=== PATIENT | female | born 1955 | race Caucasian/White ===

== ENCOUNTER 2016-09-15 10:30 | Emergency (ER) | payer BC ==
[~2016-09-15] VITALS: Ht 170.2 cm; Wt 76.5 kg
[~2016-09-15 10:30] MED LIST: CARV12.543 PO; DILT120C80 PO
[2016-09-15 12:37] LABS: HEMOGLOBIN 13.9 g/dL (11.7-16.4)
[2016-09-15] MEDS ORDERED: TELM80TA PO (12:44)
[2016-09-15] MEDS ORDERED: HYDR1TAB16 PO (12:46)
[2016-09-15 12:58] LABS: BLOOD UREA NITROGEN 16 mg/dL (7-18)
[2016-09-15 13:05] LABS: ASPARTATE AMINO TRANSFERASE 161 U/L (15-37)
[2016-09-15 13:50] VITALS: BP 134/78
[2016-09-15] MEDS ORDERED: SODIUM CHLORIDE FLUSH 10ML SYR IVF ONE (14:00)
[2016-09-15] MEDS ORDERED: MORPHINE SULFATE 4 MG/ML, 1ML IVPush PRN (14:00)
[2016-09-15] MEDS ORDERED: ONDANSETRON 2MG/ML, 2ML IVPush ONE (14:00)
[2016-09-15] MEDS ORDERED: MORPHINE SULFATE 4 MG/ML, 1ML ONE (14:01)
[2016-09-15] MEDS ORDERED: ONDANSETRON 2MG/ML, 2ML ONE (14:01)
[2016-09-15] MEDS ORDERED: OMNIPAQUE 350 MG/ML, 100ML BOTTLE ONE (18:58)
[2016-09-16] MEDS ORDERED: ZINC50TA2 PO (13:01)
[2016-09-16] MEDS ORDERED: VITA1CAP PO (13:01)
[2016-09-16] MEDS ORDERED: ASCO10004 PO (13:01)
[2016-09-16] MEDS ORDERED: CHOL20003 PO (13:01)
[2016-09-16] MEDS ORDERED: ZOLP-413 PO (13:47)
== END 2016-09-15 15:12 | disposition home or self-care (01) ==
LOC: ED 14:50
DX: K85.20 Alcohol induced acute pancreatitis without necrosis or infection (principal); I10 Essential (primary) hypertension; K59.00 Constipation, unspecified
CPT/HCPCS: 36415; 74177; 80053; 80307; 81001; 83690; 85025; 87086; 96374; 96375; 99285; J2405; Q9967

== ENCOUNTER 2016-09-16 11:07 | Inpatient (IN) | payer BC ==
[~2016-09-16] VITALS: Ht 170.2 cm; Wt 76.8 kg
[~2016-09-16 11:07] MED LIST changes: +HYDR1TAB16 PO; +TELM80TA PO
[2016-09-16] MEDS ORDERED: SODIUM CHLORIDE FLUSH 10ML SYR IVF ONE (12:00)
[2016-09-16] MEDS ORDERED: SODIUM CHLORIDE 0.9% 1,000ML IVBOLUS ONE (12:00)
[2016-09-16] MEDS ORDERED: ONDANSETRON 2MG/ML, 2ML IVPush ONE (12:00)
[2016-09-16 12:02] LABS: HEMOGLOBIN 13.5 g/dL (11.7-16.4)
[2016-09-16 12:14] LABS: ASPARTATE AMINO TRANSFERASE 82 U/L (15-37); BLOOD UREA NITROGEN 19 mg/dL (7-18)
[2016-09-16] MEDS ORDERED: MORPHINE SULFATE 4 MG/ML, 1ML ONE ×2 (12:22→13:42)
[2016-09-16] MEDS ORDERED: ONDANSETRON 2MG/ML, 2ML ONE (12:22)
[2016-09-16] MEDS ORDERED: SODIUM CHLORIDE 0.9% 1,000 ML IV ONE (12:34)
[2016-09-16] MEDS: MORPHINE SULFATE 4 MG/ML, 1ML IVPush PRN ×4 (12:38→21:58)
[2016-09-16] MEDS ORDERED: ZINC50TA2 PO (13:01)
[2016-09-16] MEDS ORDERED: VITA1CAP PO (13:01)
[2016-09-16] MEDS ORDERED: ASCO10004 PO (13:01)
[2016-09-16] MEDS ORDERED: CHOL20003 PO (13:01)
[2016-09-16] MEDS ORDERED: ZOLP-413 PO (13:47)
[2016-09-16 14:38] VITALS: BP 162/106
[2016-09-16] MEDS: SODIUM CHLORIDE 0.9% 1,000 ML IV SCH ×2 (14:54→20:24)
[2016-09-16] MEDS: POTASSIUM CHLORIDE 20 MEQ, MAGNESIUM SULFATE 2 GM, THIAMINE 100 MG, MVI ADULT 10 ML, FO... IV SCH (15:54)
[2016-09-16] MEDS: LORazepam 2 MG/ML, 1ML IVPush PRN ×2 (15:55→20:24)
[2016-09-16] MEDS: PANTOPRAZOLE 40 MG IV IVP SCH (15:55)
[2016-09-16 19:45] VITALS: BP 160/102
[2016-09-16] MEDS: ENOXAPARIN 40 MG/0.4 ML SQ SCH (20:30)
[2016-09-17] MEDS: MORPHINE SULFATE 4 MG/ML, 1ML IVPush PRN ×4 (01:19→16:01)
[2016-09-17] MEDS: SODIUM CHLORIDE 0.9% 1,000 ML IV SCH ×4 (01:19→18:00)
[2016-09-17] MEDS: ONDANSETRON 2MG/ML, 2ML IVP PRN ×3 (01:28→23:27)
[2016-09-17 03:13] VITALS: BP 164/115
[2016-09-17] MEDS: LORazepam 2 MG/ML, 1ML IVPush PRN ×2 (03:32→08:54)
[2016-09-17 07:13] LABS: BLOOD UREA NITROGEN 8 mg/dL (7-18)
[2016-09-17 07:22] LABS: ASPARTATE AMINO TRANSFERASE 56 U/L (15-37)
[2016-09-17 07:23] LABS: HEMOGLOBIN 11.9 g/dL (11.7-16.4)
[2016-09-17 07:53] VITALS: BP 184/123
[2016-09-17 08:20] LABS: DIFF TOTAL CELLS COUNTED 100 CELL DIFF
[2016-09-17 08:22] LABS: VERIFY COUNTS? YES
[2016-09-17] MEDS: LOSARTAN 50MG TABLET PO SCH ×2 (08:54→09:00)
[2016-09-17] MEDS: CARVEDILOL 12.5 MG TABLET PO SCH (08:55)
[2016-09-17] MEDS: PANTOPRAZOLE 40 MG IV IVP SCH (08:55)
[2016-09-17] MEDS: DILTIAZEM 120 MG CAP.ER.24H PO SCH (08:55)
[2016-09-17] MEDS: BISACODYL 10 MG SUPP PR PRN (12:03)
[2016-09-17 12:11] VITALS: BP 157/107
[2016-09-17] MEDS: POTASSIUM CHLORIDE 20 MEQ, MAGNESIUM SULFATE 2 GM, THIAMINE 100 MG, MVI ADULT 10 ML, FO... IV SCH (16:50)
[2016-09-17 16:53] VITALS: BP 157/102
[2016-09-17] MEDS: SUCRALFATE 1 GM/10 ML UDC PO SCH ×2 (17:25→19:53)
[2016-09-17 18:10] LABS: DAU SCREEN DISCLAIMER
[2016-09-17] MEDS: HYDROmorphone 2 MG/ML, 1ML IVPush PRN ×2 (18:36→23:30)
[2016-09-17 18:50] VITALS: BP 163/105
[2016-09-17] MEDS: ENOXAPARIN 40 MG/0.4 ML SQ SCH (19:54)
[2016-09-17] MEDS: ZOLPIDEM 5MG TABLET PO PRN (20:24)
[2016-09-18 01:50] VITALS: BP 157/91
[2016-09-18] MEDS: HYDROmorphone 2 MG/ML, 1ML IVPush PRN ×7 (02:58→22:26)
[2016-09-18 05:45] LABS: HEMOGLOBIN 10.9 g/dL (11.7-16.4)
[2016-09-18] MEDS: SODIUM CHLORIDE 0.9% 1,000 ML IV SCH ×4 (06:13→22:26)
[2016-09-18 06:17] LABS: ASPARTATE AMINO TRANSFERASE 37 U/L (15-37); BLOOD UREA NITROGEN 3 mg/dL (7-18)
[2016-09-18] MEDS: SUCRALFATE 1 GM/10 ML UDC PO SCH ×4 (07:00→22:26)
[2016-09-18 07:54] VITALS: BP 164/101
[2016-09-18] MEDS: PANTOPRAZOLE 40 MG IV IVP SCH (08:57)
[2016-09-18] MEDS: ONDANSETRON 2MG/ML, 2ML IVP PRN (09:17)
[2016-09-18] MEDS: CARVEDILOL 12.5 MG TABLET PO SCH (09:20)
[2016-09-18] MEDS: LOSARTAN 50MG TABLET PO SCH (09:20)
[2016-09-18] MEDS: DILTIAZEM 120 MG CAP.ER.24H PO SCH (09:21)
[2016-09-18] MEDS: LORazepam 2 MG/ML, 1ML IVPush PRN ×3 (11:08→20:26)
[2016-09-18] MEDS: BISACODYL 10 MG SUPP PR PRN (12:32)
[2016-09-18 13:01] VITALS: BP 155/100
[2016-09-18] MEDS ORDERED: OMNIPAQUE 350 MG/ML, 100ML BOTTLE ONE (17:28)
[2016-09-18 18:58] VITALS: BP 163/102
[2016-09-18] MEDS: ENOXAPARIN 40 MG/0.4 ML SQ SCH (22:26)
[2016-09-18] MEDS: ZOLPIDEM 5MG TABLET PO PRN (22:26)
[2016-09-19] MEDS: LORazepam 2 MG/ML, 1ML IVPush PRN ×3 (00:53→14:05)
[2016-09-19 02:11] VITALS: BP 166/103
[2016-09-19] MEDS: HYDROmorphone 2 MG/ML, 1ML IVPush PRN ×4 (02:20→12:39)
[2016-09-19] MEDS: SODIUM CHLORIDE 0.9% 1,000 ML IV SCH ×3 (02:46→14:11)
[2016-09-19 07:12] VITALS: BP 155/94
[2016-09-19] MEDS: PANTOPRAZOLE 40 MG IV IVP SCH (07:53)
[2016-09-19] MEDS: SUCRALFATE 1 GM/10 ML UDC PO SCH ×4 (07:53→21:35)
[2016-09-19] MEDS: CARVEDILOL 12.5 MG TABLET PO SCH (07:54)
[2016-09-19] MEDS: LOSARTAN 50MG TABLET PO SCH (07:54)
[2016-09-19] MEDS: DILTIAZEM 120 MG CAP.ER.24H PO SCH (07:55)
[2016-09-19] MEDS: BISACODYL 10 MG SUPP PR PRN (10:53)
[2016-09-19 15:46] VITALS: BP 136/85
[2016-09-19] MEDS ORDERED: LORazepam 0.5MG TABLET PO PRN (16:00)
[2016-09-19] MEDS ORDERED: LORazepam 2 MG/ML, 1ML IV PRN ×5 (16:00)
[2016-09-19] MEDS ORDERED: LORazepam 1MG TABLET PO PRN ×4 (16:00)
[2016-09-19] MEDS: HYDROmorphone 2MG TABLET PO PRN ×2 (16:41→23:46)
[2016-09-19 19:04] VITALS: BP 126/83
[2016-09-19] MEDS: HYDROcodone/APAP 5/325 TABLET PO PRN (19:39)
[2016-09-19] MEDS: ENOXAPARIN 40 MG/0.4 ML SQ SCH (19:46)
[2016-09-20] MEDS: ZOLPIDEM 5MG TABLET PO PRN (00:26)
[2016-09-20 01:32] VITALS: BP 149/88
[2016-09-20] MEDS: HYDROcodone/APAP 5/325 TABLET PO PRN ×4 (02:55→22:11)
[2016-09-20 05:37] LABS: ASPARTATE AMINO TRANSFERASE 28 U/L (15-37); BLOOD UREA NITROGEN 5 mg/dL (7-18)
[2016-09-20 05:38] LABS: HEMOGLOBIN 10.4 g/dL (11.7-16.4)
[2016-09-20] MEDS: HYDROmorphone 2MG TABLET PO PRN ×3 (05:59→18:03)
[2016-09-20 06:17] LABS: ANISOCYTOSIS 1+
[2016-09-20 06:18] LABS: STOMATOCYTES 1+
[2016-09-20 06:19] LABS: MONOS WITH VACUOLES 1+
[2016-09-20 08:11] VITALS: BP 153/91
[2016-09-20] MEDS: DILTIAZEM 120 MG CAP.ER.24H PO SCH (09:14)
[2016-09-20] MEDS: PANTOPRAZOLE 40 MG IV IVP SCH (09:14)
[2016-09-20] MEDS: SUCRALFATE 1 GM/10 ML UDC PO SCH ×4 (09:14→20:26)
[2016-09-20] MEDS: FOLIC ACID 1 MG TABLET PO SCH (09:15)
[2016-09-20] MEDS: THIAMINE 100MG TABLET PO SCH (09:15)
[2016-09-20] MEDS: LOSARTAN 50MG TABLET PO SCH (09:15)
[2016-09-20] MEDS: CARVEDILOL 12.5 MG TABLET PO SCH (09:15)
[2016-09-20] MEDS: SODIUM CHLORIDE 0.9% 1,000 ML IV SCH ×3 (09:16→22:56)
[2016-09-20] MEDS: BISACODYL 10 MG SUPP PR PRN (09:18)
[2016-09-20 13:18] VITALS: BP 108/55
[2016-09-20] MEDS: POTASSIUM CHLORIDE 20 MEQ PACKET PO SCH (13:34)
[2016-09-20] MEDS ORDERED: LORazepam 2 MG/ML, 1ML IVPush ONE (16:00)
[2016-09-20 18:59] VITALS: BP 131/89
[2016-09-20] MEDS: ENOXAPARIN 40 MG/0.4 ML SQ SCH (20:27)
[2016-09-21] MEDS: HYDROmorphone 2MG TABLET PO PRN ×4 (00:27→19:17)
[2016-09-21 03:40] VITALS: BP 145/96
[2016-09-21] MEDS: HYDROcodone/APAP 5/325 TABLET PO PRN (04:15)
[2016-09-21 05:29] LABS: BLOOD UREA NITROGEN 4 mg/dL (7-18)
[2016-09-21 05:31] LABS: ASPARTATE AMINO TRANSFERASE 26 U/L (15-37)
[2016-09-21 05:36] LABS: HEMOGLOBIN 9.5 g/dL (11.7-16.4)
[2016-09-21] MEDS: SODIUM CHLORIDE 0.9% 1,000 ML IV SCH ×2 (05:39→13:30)
[2016-09-21 07:12] VITALS: BP 157/91
[2016-09-21] MEDS: DILTIAZEM 120 MG CAP.ER.24H PO SCH (08:29)
[2016-09-21] MEDS: PANTOPRAZOLE 40 MG IV IVP SCH (08:30)
[2016-09-21] MEDS: THIAMINE 100MG TABLET PO SCH (08:31)
[2016-09-21] MEDS: FOLIC ACID 1 MG TABLET PO SCH (08:31)
[2016-09-21] MEDS: POTASSIUM CHLORIDE 20 MEQ PACKET PO SCH (08:31)
[2016-09-21] MEDS: LOSARTAN 50MG TABLET PO SCH (08:31)
[2016-09-21] MEDS: SUCRALFATE 1 GM/10 ML UDC PO SCH ×4 (08:32→19:56)
[2016-09-21] MEDS: CARVEDILOL 12.5 MG TABLET PO SCH (08:32)
[2016-09-21] MEDS: OXYcodone IR 5MG TABLET PO PRN ×3 (10:42→23:09)
[2016-09-21 13:00] VITALS: BP 126/83
[2016-09-21] MEDS: BISACODYL 10 MG SUPP PR PRN (17:29)
[2016-09-21 19:07] VITALS: BP 120/84
[2016-09-21] MEDS: ENOXAPARIN 40 MG/0.4 ML SQ SCH (19:56)
[2016-09-22 03:09] VITALS: BP 145/92
[2016-09-22] MEDS: HYDROmorphone 2MG TABLET PO PRN ×4 (03:19→20:30)
[2016-09-22] MEDS: OXYcodone IR 5MG TABLET PO PRN ×3 (05:15→19:12)
[2016-09-22 06:02] LABS: BLOOD UREA NITROGEN 5 mg/dL (7-18)
[2016-09-22 06:07] LABS: ASPARTATE AMINO TRANSFERASE 24 U/L (15-37)
[2016-09-22 06:09] LABS: HEMOGLOBIN 9.5 g/dL (11.7-16.4)
[2016-09-22] MEDS: SUCRALFATE 1 GM/10 ML UDC PO SCH ×4 (07:00→20:30)
[2016-09-22] MEDS: POTASSIUM CHLORIDE 20 MEQ PACKET PO SCH (08:00)
[2016-09-22 08:40] VITALS: BP 154/96
[2016-09-22] MEDS: PANTOPRAZOLE 40 MG IV IVP SCH (09:34)
[2016-09-22] MEDS: CARVEDILOL 12.5 MG TABLET PO SCH (09:34)
[2016-09-22] MEDS ORDERED: MIDAZOLAM 1 MG/ML, 5ML ONE (11:40)
[2016-09-22] MEDS ORDERED: FENTANYL PF 100 MCG/2ML ONE (11:40)
[2016-09-22] MEDS: LOSARTAN 50MG TABLET PO SCH (12:49)
[2016-09-22] MEDS: DILTIAZEM 120 MG CAP.ER.24H PO SCH (12:49)
[2016-09-22] MEDS: FOLIC ACID 1 MG TABLET PO SCH (12:49)
[2016-09-22] MEDS: THIAMINE 100MG TABLET PO SCH (12:50)
[2016-09-22] MEDS: BISACODYL 10 MG SUPP PR PRN (15:13)
[2016-09-22 15:37] VITALS: BP 91/61
[2016-09-22 20:21] VITALS: BP 120/72
[2016-09-22] MEDS: ENOXAPARIN 40 MG/0.4 ML SQ SCH (20:30)
[2016-09-23] MEDS: HYDROmorphone 2MG TABLET PO PRN ×4 (00:45→15:28)
[2016-09-23] MEDS: OXYcodone IR 5MG TABLET PO PRN ×3 (01:29→13:59)
[2016-09-23 01:47] VITALS: BP 126/82
[2016-09-23 07:24] VITALS: BP 133/86
[2016-09-23] MEDS: SUCRALFATE 1 GM/10 ML UDC PO SCH ×2 (07:31→11:00)
[2016-09-23] MEDS: LOSARTAN 50MG TABLET PO SCH (07:32)
[2016-09-23] MEDS: PANTOPRAZOLE 40 MG IV IVP SCH (07:32)
[2016-09-23] MEDS: CARVEDILOL 12.5 MG TABLET PO SCH (07:32)
[2016-09-23] MEDS: THIAMINE 100MG TABLET PO SCH (07:33)
[2016-09-23] MEDS: DILTIAZEM 120 MG CAP.ER.24H PO SCH (07:33)
[2016-09-23] MEDS: FOLIC ACID 1 MG TABLET PO SCH (07:33)
[2016-09-23] MEDS: POTASSIUM CHLORIDE 20 MEQ PACKET PO SCH (08:00)
[2016-09-23 11:36] LABS: HEMOGLOBIN 9.6 g/dL (11.7-16.4)
[2016-09-23 11:49] LABS: BLOOD UREA NITROGEN 5 mg/dL (7-18)
[2016-09-23 11:53] LABS: ASPARTATE AMINO TRANSFERASE 21 U/L (15-37)
[2016-09-23] MEDS: BISACODYL 10 MG SUPP PR PRN (12:11)
[2016-09-23] MEDS ORDERED: POTASSIUM CHLORIDE 20 MEQ TAB.ER.PRT PO ONE (12:30)
[2016-09-23] MEDS ORDERED: HYDR-3240 PO (12:33)
[2016-09-23] MEDS ORDERED: PANT40TA3 PO (12:33)
[2016-09-23] MEDS ORDERED: FOLI-17 PO (12:33)
[2016-09-23] MEDS ORDERED: THIA100T6 PO (12:33)
[2016-09-23] MEDS ORDERED: SUCR1ORA2 PO (12:33)
[2016-09-23 13:34] VITALS: BP 103/69
== END 2016-09-23 16:04 | disposition home or self-care (01) | DRG 438 ==
LOC: ED 12:33 → EDIP 12:34 → ED 13:23 → 3NE 14:03 → DCLOUNGE 09-23 15:43
PROVIDERS: ADMIT Internal Medicine; ATTEND Internal Medicine
PROC: 0T9B70Z Drainage of Bladder with Drainage Device, Via Natural or Artificial Opening (ICD-10-PCS; 2016-09-21)
PROC: 0DB48ZX Excision of Esophagogastric Junction, Via Natural or Artificial Opening Endoscopic, Diagnostic (ICD-10-PCS; principal; 2016-09-22 10:30)
DX: K85.20 Alcohol induced acute pancreatitis without necrosis or infection (principal); E43 Unspecified severe protein-calorie malnutrition; N17.0 Acute kidney failure with tubular necrosis; E87.1 Hypo-osmolality and hyponatremia; K22.10 Ulcer of esophagus without bleeding; G89.29 Other chronic pain; I10 Essential (primary) hypertension; G47.00 Insomnia, unspecified; K76.0 Fatty (change of) liver, not elsewhere classified; N28.9 Disorder of kidney and ureter, unspecified; D75.89 Other specified diseases of blood and blood-forming organs; K86.1 Other chronic pancreatitis; E87.6 Hypokalemia; F10.10 Alcohol abuse, uncomplicated; Z68.26 Body mass index [BMI] 26.0-26.9, adult; Z90.49 Acquired absence of other specified parts of digestive tract; Z82.49 Family history of ischemic heart disease and other diseases of the circulatory system; Z86.010 Personal history of colon polyps; Z79.1 Long term (current) use of non-steroidal anti-inflammatories (NSAID)
CPT/HCPCS: 36415; 74000; 74174; 74181; 76700; 80053; 80061; 80307; 81003; 82607; 82746; 83690; 83735; 84439; 84443; 85025; 86677; 88305; 96361; 96374; 96375; 96376; J1170; J1650; J2250; J2405; J3010; J3411; J3475; J3480; J7042; Q9967; C9113; J2060; J7030

== ENCOUNTER 2016-10-31 15:43 | Inpatient (IN) | payer BC ==
[~2016-10-31] VITALS: Ht 170.2 cm; Wt 77.3 kg
[~2016-10-31 15:43] MED LIST changes: +ASCO10004 PO; +CHOL20003 PO; +FOLI-17 PO; +HYDR-3240 PO; +PANT40TA3 PO; +SUCR1ORA2 PO; +THIA100T6 PO; +VITA1CAP PO; +ZINC50TA2 PO; +ZOLP-413 PO
[2016-10-31] MEDS ORDERED: HYDROmorphone 1 MG/ML, 1ML ONE ×3 (17:26→19:29)
[2016-10-31] MEDS ORDERED: SODIUM CHLORIDE FLUSH 10ML SYR IVF ONE ×2 (17:30→19:30)
[2016-10-31] MEDS ORDERED: OXYcodone/APAP 5/325MG TABLET PO ONE (17:30)
[2016-10-31] MEDS: HYDROmorphone 1 MG/ML, 1ML IVPush PRN ×5 (17:45→23:59)
[2016-10-31] MEDS ORDERED: SODIUM CHLORIDE 0.9% 1,000 ML IV ONE (19:21)
[2016-10-31] MEDS ORDERED: LORazepam 2 MG/ML, 1ML ONE (19:30)
[2016-10-31] MEDS ORDERED: LORazepam 2 MG/ML, 1ML IVPush ONE (19:38)
[2016-10-31 19:51] LABS: BLOOD UREA NITROGEN 7 mg/dL (7-18)
[2016-10-31] MEDS ORDERED: TRAZODONE 50MG TABLET PO PRN (21:00)
[2016-10-31] MEDS ORDERED: BISACODYL 10 MG SUPP PR PRN (21:00)
[2016-10-31] MEDS ORDERED: HALOPERIDOL 5 MG/ML IVPush PRN (21:00)
[2016-10-31] MEDS ORDERED: POLYETHYLENE GLYCOL 17 GM PACKET PO PRN (21:00)
[2016-10-31] MEDS ORDERED: ENOXAPARIN 40 MG/0.4 ML SQ SCH (21:00)
[2016-10-31] MEDS ORDERED: DOCUSATE 100 MG CAPSULE PO PRN (21:00)
[2016-10-31] MEDS ORDERED: ZOLPIDEM 5MG TABLET PO SCH (21:00)
[2016-10-31] MEDS ORDERED: LABETALOL 5MG/ML, 20ML IV PRN ×2 (21:00→22:00)
[2016-10-31] MEDS ORDERED: ONDANSETRON 2MG/ML, 2ML IVP PRN (21:00)
[2016-10-31] MEDS ORDERED: PROPOFOL 10 MG/ML, 20ML ONE (21:16)
[2016-10-31] MEDS ORDERED: CEFAZOLIN 1,000 MG ONE (21:16)
[2016-10-31] MEDS ORDERED: FENTANYL PF 250 MCG/5ML ONE (21:16)
[2016-10-31] MEDS ORDERED: ONDANSETRON 2MG/ML, 2ML ONE (21:16)
[2016-10-31] MEDS ORDERED: DEXAMETHASONE 4 MG/ML, 5ML ONE (21:16)
[2016-10-31] MEDS ORDERED: EPHEDRINE 50 MG/ML, 1ML ONE (21:16)
[2016-10-31] MEDS ORDERED: MIDAZOLAM 1 MG/ML, 2ML ONE ×2 (21:16→21:59)
[2016-10-31] MEDS ORDERED: SUCCINYLCHOLINE 20 MG/ML, 10ML ONE (21:16)
[2016-10-31] MEDS ORDERED: PHENYLEPHRINE 10 MG/ML ONE (21:16)
[2016-10-31] MEDS ORDERED: BUPIVACAINE/PF 0.5% ONE (21:45)
[2016-10-31] MEDS ORDERED: BUPIVACAINE/PF 0.5% INJ ONE (21:46)
[2016-10-31] MEDS ORDERED: ACETAMINOPHEN 650 MG/20.3 ML UDC ONE (21:59)
[2016-10-31] MEDS ORDERED: FENTANYL PF 100 MCG/2ML ONE (21:59)
[2016-10-31] MEDS ORDERED: METOCLOPRAMIDE 5 MG/ML, 2ML IV PRN (22:00)
[2016-10-31] MEDS ORDERED: MEPERIDINE/PF 25MG/0.5ML IVPush PRN (22:00)
[2016-10-31] MEDS ORDERED: ONDANSETRON 2MG/ML, 2ML IVPush PRN (22:00)
[2016-10-31] MEDS ORDERED: hydrALAzine 20 MG/ML, 1ML IV PRN (22:00)
[2016-10-31] MEDS ORDERED: PROMETHAZINE 25 MG/ML, 1ML IV PRN (22:00)
[2016-10-31] MEDS ORDERED: FENTANYL PF 100 MCG/2ML IV PRN (22:00)
[2016-10-31] MEDS ORDERED: ACETAMINOPHEN 325 MG TABLET PO PRN (22:00)
[2016-10-31] MEDS ORDERED: HYDROmorphone 1 MG/ML, 1ML IV PRN (22:00)
[2016-10-31] MEDS ORDERED: ACETAMINOPHEN 325 MG TABLET ONE (22:00)
[2016-10-31] MEDS ORDERED: MIDAZOLAM 1 MG/ML, 2ML IV PRN (22:00)
[2016-10-31] MEDS ORDERED: OXYcodone 5 MG/5 ML ORAL.SOL UDC PO PRN (22:00)
[2016-10-31] MEDS ORDERED: OXYcodone 5 MG/5 ML ORAL.SOL UDC ONE (22:00)
[2016-11-01] VITALS: BP 140/98
[2016-11-01] MEDS ORDERED: LORazepam 2 MG/ML, 1ML IV PRN (00:30)
[2016-11-01] MEDS ORDERED: ONDANSETRON 2MG/ML, 2ML IV PRN (00:30)
[2016-11-01] MEDS ORDERED: SENNA/DOCUSATE TABLET PO PRN (00:30)
[2016-11-01] MEDS ORDERED: DIPHENHYDRAMINE 25 MG CAPSULE PO PRN (00:30)
[2016-11-01] MEDS ORDERED: LORazepam 1MG TABLET PO PRN (00:30)
[2016-11-01] MEDS ORDERED: HYDROmorphone 1 MG/ML, 1ML IV PRN (00:30)
[2016-11-01] MEDS: OXYcodone/APAP 5/325MG TABLET PO PRN ×2 (00:52→05:27)
[2016-11-01] MEDS: SODIUM CHLORIDE 0.9% 1,000 ML IV SCH ×2 (00:56→08:00)
[2016-11-01] MEDS: SUCRALFATE 1 GM/10 ML UDC PO SCH ×3 (00:56→11:16)
[2016-11-01] MEDS: PANTOPROZOLE 40MG TABLET PO SCH ×2 (00:59→08:36)
[2016-11-01 01:00] VITALS: BP 150/109
[2016-11-01] MEDS: MORPHINE SULFATE 4 MG/ML, 1ML IVPush PRN ×4 (02:52→12:36)
[2016-11-01 04:00] VITALS: BP 138/91
[2016-11-01] MEDS ORDERED: ASPIRIN 325 MG TABLET EC PO SCH (06:00)
[2016-11-01 06:26] LABS: ASPARTATE AMINO TRANSFERASE 19 U/L (15-37); BLOOD UREA NITROGEN 8 mg/dL (7-18)
[2016-11-01 07:38] LABS: TOTAL IRON BINDING CAPACITY 391 mcg/dL (250-450)
[2016-11-01 08:34] VITALS: BP 141/93
[2016-11-01] MEDS ORDERED: CARVEDILOL 12.5 MG TABLET PO SCH (09:00)
[2016-11-01] MEDS ORDERED: DILTIAZEM 120 MG CAP.ER.24H PO SCH (09:00)
[2016-11-01] MEDS ORDERED: DOCUSATE 100 MG CAPSULE PO SCH (09:00)
[2016-11-01] MEDS ORDERED: THIAMINE 100MG TABLET PO SCH (09:00)
[2016-11-01] MEDS ORDERED: VALSARTAN 160 MG TABLET PO SCH (09:00)
[2016-11-01] MEDS ORDERED: FOLIC ACID 1 MG TABLET PO SCH (09:00)
[2016-11-01 09:23] VITALS: BP 144/89
[2016-11-01] MEDS ORDERED: OXYC5SOL8 PO (10:38)
[2016-11-01] MEDS ORDERED: OXYcodone IR 5MG TABLET PO PRN (11:00)
[2016-11-01] MEDS ORDERED: OXYcodone 5 MG/5 ML ORAL.SOL UDC PO PRN (11:00)
[2016-11-01 13:30] VITALS: BP 144/85
== END 2016-11-01 14:02 | disposition home or self-care (01) | DRG 482 ==
LOC: ED 19:46 → EDIP 19:47 → ED 20:01 → 4NOR 23:20
PROVIDERS: ADMIT Internal Medicine; ATTEND Internal Medicine
PROC: 0QH734Z Insertion of Internal Fixation Device into Left Upper Femur, Percutaneous Approach (ICD-10-PCS; principal; 2016-10-31 20:00)
DX: S72.002A Fracture of unspecified part of neck of left femur, initial encounter for closed fracture (principal); I10 Essential (primary) hypertension; G89.29 Other chronic pain; F41.9 Anxiety disorder, unspecified; G47.00 Insomnia, unspecified; K76.0 Fatty (change of) liver, not elsewhere classified; W01.0XXA Fall on same level from slipping, tripping and stumbling without subsequent striking against object, initial encounter; Y93.89 Activity, other specified; Y92.89 Other specified places as the place of occurrence of the external cause; Y99.8 Other external cause status; Z90.49 Acquired absence of other specified parts of digestive tract; Z79.899 Other long term (current) drug therapy; Z82.49 Family history of ischemic heart disease and other diseases of the circulatory system; Z82.3 Family history of stroke; Z87.891 Personal history of nicotine dependence
CPT/HCPCS: 36415; 36556; 72190; 80048; 80053; 82040; 82306; 82607; 82746; 83540; 83550; 83735; 84439; 84443; 85025; 85610; 85730; 93005; 96374; 96375; C1713; J0690; J1100; J1170; J1650; J2250; J2405; J2704; J3010; J3490; J0330; J2060; J2370; J7030

== ENCOUNTER → 2017-05-30 | Outpatient (CLI) | payer BC ==
[~2017-05-30] MED LIST changes: +CHOL2000 PO; -CHOL20003 PO; +OXYC5SOL8 PO; -SUCR1ORA2 PO; +SUCR1ORA5 PO
== END | disposition home or self-care (01) ==
LOC: WOUND 09:32
PROVIDERS: ATTEND Family Medicine
DX: L97.212 Non-pressure chronic ulcer of right calf with fat layer exposed (principal); F41.9 Anxiety disorder, unspecified; I10 Essential (primary) hypertension; G89.29 Other chronic pain; F10.10 Alcohol abuse, uncomplicated; Z87.891 Personal history of nicotine dependence; Z90.49 Acquired absence of other specified parts of digestive tract
CPT/HCPCS: 97597; 97598; 99215

== ENCOUNTER → 2017-06-13 | Outpatient (CLI) | payer BC | END | disposition home or self-care (01) | LOC: WOUND 07:55 | PROVIDERS: ATTEND Family Medicine | DX: L97.212 Non-pressure chronic ulcer of right calf with fat layer exposed (principal); I10 Essential (primary) hypertension; F41.9 Anxiety disorder, unspecified; G89.29 Other chronic pain; F10.10 Alcohol abuse, uncomplicated; Z87.891 Personal history of nicotine dependence; Z90.49 Acquired absence of other specified parts of digestive tract | CPT/HCPCS: 97597 ==

== ENCOUNTER → 2017-06-20 | Outpatient (CLI) | payer BC | END | disposition home or self-care (01) | LOC: WOUND 08:00 | PROVIDERS: ATTEND Family Medicine | DX: L97.212 Non-pressure chronic ulcer of right calf with fat layer exposed (principal); I10 Essential (primary) hypertension; F41.9 Anxiety disorder, unspecified; G89.29 Other chronic pain; F10.10 Alcohol abuse, uncomplicated; Z90.49 Acquired absence of other specified parts of digestive tract; Z87.891 Personal history of nicotine dependence | CPT/HCPCS: 97597 ==

== ENCOUNTER → 2017-06-27 | Outpatient (CLI) | payer BC | END | disposition home or self-care (01) | LOC: WOUND 09:06 | PROVIDERS: ATTEND Family Medicine | DX: L97.212 Non-pressure chronic ulcer of right calf with fat layer exposed (principal); I10 Essential (primary) hypertension; F41.9 Anxiety disorder, unspecified; G89.29 Other chronic pain; F10.10 Alcohol abuse, uncomplicated; Z87.891 Personal history of nicotine dependence | CPT/HCPCS: 11042; 11045 ==

== ENCOUNTER → 2017-11-06 | Outpatient (CLI) | payer OTHER ==
[~2017-11-06] MED LIST changes: +OMNIPAQUE 350 MG/ML, 100ML BOTTLE ONE
== END | disposition home or self-care (01) ==
LOC: CFH 11:13
PROVIDERS: ATTEND Physician Assistant Medical
DX: S22.42XD Multiple fractures of ribs, left side, subsequent encounter for fracture with routine healing (principal); I71.2 Thoracic aortic aneurysm, without rupture; X58.XXXD Exposure to other specified factors, subsequent encounter
CPT/HCPCS: 71275; Q9967

== ENCOUNTER → 2017-12-04 | Outpatient (CLI) | payer OTHER ==
[~2017-12-04] MED LIST changes: -OMNIPAQUE 350 MG/ML, 100ML BOTTLE ONE; +REGADENOSON 0.4 MG/5 ML SYRINGE ONE
== END | disposition home or self-care (01) ==
LOC: CFH 11:33 → EDSTATUS 11:45
PROVIDERS: ATTEND Physician Assistant Medical
DX: Z12.31 Encounter for screening mammogram for malignant neoplasm of breast (principal); I71.2 Thoracic aortic aneurysm, without rupture
CPT/HCPCS: 77063; 77067; 78452; 93017; A9502; J2785

== ENCOUNTER → 2018-02-27 | Outpatient (CLI) | payer OTHER ==
[~2018-02-27] MED LIST changes: -REGADENOSON 0.4 MG/5 ML SYRINGE ONE; -THIA100T6 PO; +THIA100T67 PO
== END | disposition home or self-care (01) ==
LOC: RAD 10:45
PROVIDERS: ATTEND Neurological Surgery
DX: M51.36 Other intervertebral disc degeneration, lumbar region (principal); M47.28 Other spondylosis with radiculopathy, sacral and sacrococcygeal region
CPT/HCPCS: 72131

== ENCOUNTER → 2018-11-11 | Outpatient (CLI) | payer OTHER | END | disposition home or self-care (01) | LOC: CFH 12:41 | PROVIDERS: ATTEND Orthopaedic Surgery | DX: M47.817 Spondylosis without myelopathy or radiculopathy, lumbosacral region (principal); M51.26 Other intervertebral disc displacement, lumbar region; M85.80 Other specified disorders of bone density and structure, unspecified site; M70.61 Trochanteric bursitis, right hip; Z78.0 Asymptomatic menopausal state | CPT/HCPCS: 72148; 77080 ==

== ENCOUNTER → 2018-12-02 | Outpatient (CLI) | payer OTHER | END | disposition home or self-care (01) | LOC: CFH 12:08 | PROVIDERS: ATTEND Family Medicine | DX: N64.4 Mastodynia (principal); I70.90 Unspecified atherosclerosis; Z87.891 Personal history of nicotine dependence | CPT/HCPCS: 76641; 77066; G0279; G0297 ==

== ENCOUNTER 2019-05-29 14:57 | Inpatient (IN) | payer OTHER ==
[~2019-05-29] VITALS: Ht 165.1 cm; Wt 67.0 kg
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
--- NOTE | 2019-05-29 15:56 | NUR ---
ERMD IN TO EVAL PT
--- NOTE | 2019-05-29 16:51 | NUR ---
ERMD IN TO UPDATE PT AND CAREGIVER. PT TO HAVE SURGURY, ALLOWED ICECHIPS PER ERMD, GIVEN SMALL GLASS. AWAITING ORTHO
[2019-05-29] MEDS ORDERED: SODIUM CHLORIDE FLUSH 10ML SYR IVF ONE (17:00)
[2019-05-29 17:02] LABS: BASOPHILS # (AUTO) 0.05 x10^3/uL (0-0.1); BASOPHILS % (AUTO) 1 % (0-1); EOSINOPHILS # (AUTO) 0.21 x10^3/uL (0-0.4); EOSINOPHILS % (AUTO) 2 % (1-7); LYMPHOCYTES # (AUTO) 1.87 x10^3/uL (1-3.4); LYMPHOCYTES % (AUTO) 19 % (22-44); MD NO; MEAN CORPUSCULAR HEMOGLOBIN 35.6 pg (27.0-34.8); MEAN CORPUSCULAR HGB CONC 33.7 g/dL (32.4-35.8); MEAN CORPUSCULAR VOLUME 105.7 fL (80-100); MEAN PLATELET VOLUME 7.4 fL (7.4-10.4); MONOCYTES # (AUTO) 0.95 x10^3/uL (0.2-0.8); MONOCYTES % (AUTO) 10 % (2-9); NEUTROPHILS # (AUTO) 6.72 x10^3/uL (1.8-6.8); NEUTROPHILS % (AUTO) 69 % (42-75); PLATELET COUNT 220 x10^3/uL (130-400); RED BLOOD COUNT 3.19 x10^6/uL (3.82-5.3); RED CELL DISTRIBUTION WIDTH 14.1 % (9.6-15.2)
[2019-05-29 17:11] LABS: ALBUMIN 3.4 g/dL (3.4-5.0); ANION GAP 9 mmol/L (5-15); CALCIUM 8.7 mg/dL (8.5-10.1); CHLORIDE 95 mmol/L (98-107); CREATININE 0.65 mg/dL (0.55-1.02)
[2019-05-29 17:14] LABS: INTERNATIONAL NORMALIZED RATIO 0.95 (0.93-1.1)
[2019-05-29 17:15] LABS: TROPONIN I < 0.015 ng/mL (0.000-0.045)
--- NOTE | 2019-05-29 17:16 | NUR ---
Pt's caregiver, True, contact info: [phone]
[2019-05-29] MEDS ORDERED: HYDROmorphone 1 MG/ML, 1ML INJ IVPush PRN (17:30)
[2019-05-29] MEDS ORDERED: SODIUM CHLORIDE FLUSH 10ML SYR IVF PRN (17:30)
[2019-05-29] MEDS ORDERED: ONDANSETRON 2MG/ML, 2ML IVPush PRN ×2 (17:30)
[2019-05-29] MEDS ORDERED: MIDAZOLAM 1 MG/ML, 2ML ONE (17:54)
--- NOTE | 2019-05-29 17:54 | NUR ---
PT TO CT AT THIS TIME
[2019-05-29] MEDS ORDERED: FENTANYL PF 250 MCG/5ML ONE (17:55)
[2019-05-29] MEDS ORDERED: TRANEXAMIC ACID 100 MG/ML, 10ML ONE (18:38)
[2019-05-29] MEDS ORDERED: DIAZEPAM 5 MG/ML, 2ML IVPush PRN (19:00)
[2019-05-29] MEDS ORDERED: METOPROLOL 1 MG/ML, 5ML IV PRN (19:00)
[2019-05-29] MEDS ORDERED: PROMETHAZINE 25 MG/ML, 1ML IV PRN (19:00)
[2019-05-29] MEDS ORDERED: hydrALAzine 20 MG/ML, 1ML IV PRN (19:00)
[2019-05-29] MEDS ORDERED: MIDAZOLAM 1 MG/ML, 2ML IV PRN (19:00)
[2019-05-29] MEDS ORDERED: ACETAMINOPHEN 325 MG TABLET PO PRN (19:00)
[2019-05-29] MEDS ORDERED: MEPERIDINE/PF 25MG/ML,1ML IVPush PRN (19:00)
[2019-05-29] MEDS ORDERED: ALBUTEROL/IPRATROPIUM 2.5MG/0.5MG, 3 ML NPPB PRN (19:00)
[2019-05-29] MEDS ORDERED: OXYcodone 5 MG/5 ML ORAL.SOL UDC PO PRN (19:00)
[2019-05-29] MEDS ORDERED: HYDROmorphone 2 MG/ML, 1ML IVPush PRN (19:00)
[2019-05-29] MEDS ORDERED: DEXAMETHASONE 4 MG/ML, 1ML ONE (19:24)
[2019-05-29] MEDS ORDERED: CEFAZOLIN 1,000 MG ONE (19:24)
[2019-05-29] MEDS ORDERED: PROPOFOL 10 MG/ML, 20ML ONE (19:24)
[2019-05-29] MEDS ORDERED: ONDANSETRON 2MG/ML, 2ML ONE (19:24)
[2019-05-29] MEDS ORDERED: SUCCINYLCHOLINE 20 MG/ML, 10ML ONE (19:24)
[2019-05-29] MEDS ORDERED: OXYcodone 5 MG/5 ML ORAL.SOL UDC ONE (19:43)
[2019-05-29] MEDS ORDERED: FENTANYL PF 100 MCG/2ML ONE (19:43)
[2019-05-29] MEDS: FENTANYL PF 100 MCG/2ML IV PRN ×3 (19:45→20:02)
[2019-05-29] MEDS: CARVEDILOL 12.5 MG TABLET PO SCH ×2 (21:00→23:10)
[2019-05-29] MEDS: DILTIAZEM 120 MG CAP.ER.12H PO SCH ×2 (23:10→23:13)
[2019-05-29] MEDS: MORPHINE SULFATE 4 MG/ML, 1ML IVPush PRN (23:11)
[2019-05-30] MEDS ORDERED: ASCO500C10 PO (00:23)
[2019-05-30 01:06] VITALS: BP 87/65
[2019-05-30] MEDS: CEFAZOLIN 2,000 MG in SODIUM CHLORIDE 0.9% 50 ML IV SCH ×2 (03:09→11:01)
[2019-05-30 03:17] VITALS: BP 113/81
[2019-05-30] MEDS: MORPHINE SULFATE 4 MG/ML, 1ML IVPush PRN ×4 (03:54→20:17)
[2019-05-30 04:10] LABS: AMPHETAMINE SCREEN, URINE Negative (Negative); BARBITURATE SCREEN, URINE Negative (Negative); BENZODIAZEPINE SCREEN, URINE Positive (Negative); CANNABINOID SCREEN, URINE Negative (Negative); COCAINE SCREEN, URINE Negative (Negative); METHADONE SCREEN, URINE Negative (Negative); OPIATE SCREEN, URINE Positive (Negative)
[2019-05-30 05:52] LABS: BASOPHILS % (AUTO) 0 % (0-1); EOSINOPHILS % (AUTO) 0 % (1-7); LYMPHOCYTES # (AUTO) 0.38 x10^3/uL (1-3.4); LYMPHOCYTES % (AUTO) 6 % (22-44); MD NO; MEAN CORPUSCULAR HEMOGLOBIN 34.8 pg (27.0-34.8); MEAN CORPUSCULAR HGB CONC 33.2 g/dL (32.4-35.8); MEAN CORPUSCULAR VOLUME 104.6 fL (80-100); MEAN PLATELET VOLUME 7.6 fL (7.4-10.4); MONOCYTES # (AUTO) 0.34 x10^3/uL (0.2-0.8); MONOCYTES % (AUTO) 5 % (2-9); NEUTROPHILS # (AUTO) 5.93 x10^3/uL (1.8-6.8); NEUTROPHILS % (AUTO) 89 % (42-75); PLATELET COUNT 196 x10^3/uL (130-400); RED BLOOD COUNT 2.58 x10^6/uL (3.82-5.3); RED CELL DISTRIBUTION WIDTH 14.3 % (9.6-15.2)
[2019-05-30 05:59] LABS: CHLORIDE 97 mmol/L (98-107)
[2019-05-30 06:30] LABS: ALANINE AMINOTRANSFERASE 25 U/L (12-78); ALBUMIN 2.9 g/dL (3.4-5.0); ALKALINE PHOSPHATASE 93 U/L (45-117); ANION GAP 5 mmol/L (5-15); BILIRUBIN,TOTAL 1.1 mg/dL (0.2-1.0); CALCIUM 8.4 mg/dL (8.5-10.1); CREATININE 0.67 mg/dL (0.55-1.02); TOTAL PROTEIN 5.8 g/dL (6.4-8.2)
[2019-05-30 07:02] VITALS: BP 103/70
[2019-05-30] MEDS: CARVEDILOL 12.5 MG TABLET PO SCH ×2 (08:31→20:46)
[2019-05-30] MEDS ORDERED: LOSARTAN 50MG TABLET PO SCH ×2 (09:00→21:00)
[2019-05-30] MEDS ORDERED: CARVEDILOL 12.5 MG TABLET PO SCH (09:00)
[2019-05-30] MEDS: OXYcodone IR 5MG TABLET PO PRN ×4 (10:30→22:12)
[2019-05-30] MEDS: IBUPROFEN 600 MG TABLET PO PRN ×2 (12:15→18:08)
[2019-05-30 12:19] VITALS: BP 97/71
[2019-05-30] MEDS ORDERED: DOCUSATE 100 MG CAPSULE PO PRN (16:30)
[2019-05-30] MEDS ORDERED: BISACODYL 10 MG SUPP PR PRN (16:30)
[2019-05-30] MEDS ORDERED: ENOXAPARIN 40 MG/0.4 ML SQ SCH (17:30)
[2019-05-30 19:02] VITALS: BP 98/64
[2019-05-31] MEDS: IBUPROFEN 600 MG TABLET PO PRN ×3 (00:03→12:27)
[2019-05-31] MEDS: MORPHINE SULFATE 4 MG/ML, 1ML IVPush PRN ×4 (00:15→14:01)
[2019-05-31 01:25] VITALS: BP 95/61
[2019-05-31] MEDS: OXYcodone IR 5MG TABLET PO PRN ×4 (02:19→15:21)
[2019-05-31 06:00] LABS: ANION GAP 5 mmol/L (5-15); CALCIUM 8.3 mg/dL (8.5-10.1); CHLORIDE 97 mmol/L (98-107)
[2019-05-31 06:02] LABS: CREATININE 0.51 mg/dL (0.55-1.02)
[2019-05-31] MEDS ORDERED: CHLO25TA PO (07:35)
[2019-05-31 07:37] VITALS: BP 126/85
[2019-05-31 07:43] LABS: MEAN CORPUSCULAR HEMOGLOBIN 35.4 pg (27.0-34.8); MEAN CORPUSCULAR HGB CONC 33.8 g/dL (32.4-35.8); MEAN CORPUSCULAR VOLUME 104.9 fL (80-100); MEAN PLATELET VOLUME 7.2 fL (7.4-10.4); PLATELET COUNT 214 x10^3/uL (130-400); RED BLOOD COUNT 2.09 x10^6/uL (3.82-5.3)
[2019-05-31 07:51] LABS: BASOPHILS # (AUTO) 0.02 x10^3/uL (0-0.1); BASOPHILS % (AUTO) 0 % (0-1); EOSINOPHILS # (AUTO) 0.06 x10^3/uL (0-0.4); EOSINOPHILS % (AUTO) 1 % (1-7); LYMPHOCYTES # (AUTO) 2.21 x10^3/uL (1-3.4); LYMPHOCYTES % (AUTO) 28 % (22-44); MD SCAN; MONOCYTES # (AUTO) 1.24 x10^3/uL (0.2-0.8); MONOCYTES % (AUTO) 16 % (2-9); NEUTROPHILS # (AUTO) 4.31 x10^3/uL (1.8-6.8); NEUTROPHILS % (AUTO) 55 % (42-75)
[2019-05-31] MEDS ORDERED: HOLD MEDICATION MC PRN (08:00)
[2019-05-31] MEDS ORDERED: POLYETHYLENE GLYCOL 17 GM PACKET PO SCH (09:00)
[2019-05-31] MEDS: CARVEDILOL 12.5 MG TABLET PO SCH (09:27)
[2019-05-31 12:24] VITALS: BP 112/75
[2019-05-31] MEDS ORDERED: CHLORTHALIDONE 25 MG TABLET PO SCH (12:30)
[2019-05-31 13:17] LABS: BASOPHILS # (AUTO) 0.01 x10^3/uL (0-0.1); BASOPHILS % (AUTO) 0 % (0-1); EOSINOPHILS # (AUTO) 0.05 x10^3/uL (0-0.4); EOSINOPHILS % (AUTO) 1 % (1-7); LYMPHOCYTES # (AUTO) 1.83 x10^3/uL (1-3.4); LYMPHOCYTES % (AUTO) 21 % (22-44); MD NO; MEAN CORPUSCULAR HEMOGLOBIN 36.1 pg (27.0-34.8); MEAN CORPUSCULAR HGB CONC 33.5 g/dL (32.4-35.8); MEAN CORPUSCULAR VOLUME 107.8 fL (80-100); MEAN PLATELET VOLUME 7.4 fL (7.4-10.4); MONOCYTES # (AUTO) 1.11 x10^3/uL (0.2-0.8); MONOCYTES % (AUTO) 13 % (2-9); NEUTROPHILS # (AUTO) 5.86 x10^3/uL (1.8-6.8); NEUTROPHILS % (AUTO) 66 % (42-75); PLATELET COUNT 234 x10^3/uL (130-400); RED BLOOD COUNT 2.16 x10^6/uL (3.82-5.3); RED CELL DISTRIBUTION WIDTH 14.9 % (9.6-15.2)
[2019-05-31 15:12] VITALS: BP 113/73
== END 2019-05-31 15:50 | disposition home health service (06) | DRG 470 ==
LOC: ED 15:46 → EDIP 17:12 → SUATTDRO 17:21 → 4NE 20:48 → DCLOUNGE 05-31 15:40
PROVIDERS: ADMIT Internal Medicine; ATTEND Hospitalist
PROC: 0SRR0JZ Replacement of Right Hip Joint, Femoral Surface with Synthetic Substitute, Open Approach (ICD-10-PCS; principal; 2019-05-29 17:45)
DX: S72.091A Other fracture of head and neck of right femur, initial encounter for closed fracture (principal); E87.1 Hypo-osmolality and hyponatremia; D53.9 Nutritional anemia, unspecified; D75.89 Other specified diseases of blood and blood-forming organs; E07.81 Sick-euthyroid syndrome; F10.10 Alcohol abuse, uncomplicated; F41.9 Anxiety disorder, unspecified; G89.29 Other chronic pain; I10 Essential (primary) hypertension; W18.39XA Other fall on same level, initial encounter; K76.0 Fatty (change of) liver, not elsewhere classified; Z82.49 Family history of ischemic heart disease and other diseases of the circulatory system; Z87.81 Personal history of (healed) traumatic fracture; Y93.89 Activity, other specified; Y92.89 Other specified places as the place of occurrence of the external cause; Y99.8 Other external cause status
CPT/HCPCS: 36415; 70450; 71045; 80048; 80053; 80307; 82040; 82607; 84439; 84443; 84484; 85025; 85610; 85730; 93005; G0378; J0690; J1100; J1650; J2250; J2405; J2704; J3010; C1776; J0330; J2270

== ENCOUNTER 2019-10-02 11:42 | Observation (INO) | payer BC, OTHER ==
[~2019-10-02] VITALS: Ht 172.7 cm; Wt 65.0 kg
[~2019-10-02 11:42] MED LIST changes: +ASCO500C10 PO; +CHLO25TA PO
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
[2019-10-02 12:46] LABS: BASOPHILS # (AUTO) 0.05 x10^3/uL (0-0.1); BASOPHILS % (AUTO) 1 % (0-1); EOSINOPHILS % (AUTO) 1 % (1-7); LYMPHOCYTES # (AUTO) 1.41 x10^3/uL (1-3.4); LYMPHOCYTES % (AUTO) 13 % (22-44); MD NO; MEAN CORPUSCULAR HEMOGLOBIN 34.6 pg (27.0-34.8); MEAN CORPUSCULAR HGB CONC 33.8 g/dL (32.4-35.8); MEAN CORPUSCULAR VOLUME 102.6 fL (80-100); MEAN PLATELET VOLUME 7.6 fL (7.4-10.4); MONOCYTES # (AUTO) 0.43 x10^3/uL (0.2-0.8); MONOCYTES % (AUTO) 4 % (2-9); NEUTROPHILS % (AUTO) 81 % (42-75); PLATELET COUNT 269 x10^3/uL (130-400); RED BLOOD COUNT 3.54 x10^6/uL (3.82-5.3); RED CELL DISTRIBUTION WIDTH 13.7 % (9.6-15.2)
--- NOTE | 2019-10-02 12:53 | NUR ---
PT RESTING IN GURNEY. REPEAT EKG COMPLETE. PROVIDER NOTIFED OF PT BP
[2019-10-02 12:58] LABS: ALBUMIN 3.6 g/dL (3.4-5.0); ANION GAP 10 mmol/L (5-15); CHLORIDE 94 mmol/L (98-107); CREATININE 0.57 mg/dL (0.55-1.02)
[2019-10-02 13:03] LABS: TROPONIN I < 0.015 ng/mL (0.000-0.045)
--- NOTE | 2019-10-02 13:24 | NUR ---
PT RESTING IN [facility]. VSS. MEDICATED PER MAR
--- NOTE | 2019-10-02 13:47 | NUR ---
CT WAITING FOR TERMINAL CLEAN
[2019-10-02] MEDS ORDERED: LORazepam 1MG TABLET ONE (14:55)
[2019-10-02] MEDS ORDERED: OMNIPAQUE 350 MG/ML, 100ML BOTTLE ONE (14:57)
--- NOTE | 2019-10-02 14:59 | NUR ---
PT IS NERVOUS AND ANXIOUS. SEE MAR FOR INTERVENTIONS
[2019-10-02] MEDS ORDERED: LORazepam 1MG TABLET PO ONE (15:00)
--- NOTE | 2019-10-02 15:10 | NUR ---
BREAK RN: PT UPRIGHT ON GURNEY AWAKE & CALMER, WATCHING TV, RESPONDS APPROP TO STAFF, NAD, NO NEEDS AT THIS TIME, CALL LIGHT WITHN REACH.
--- NOTE | 2019-10-02 15:43 | NUR ---
PT RESTING IN [facility]. REPORTS ANXIETY IMRPOVEMENT
[2019-10-02] MEDS ORDERED: ZOLPIDEM 5MG TABLET PO PRN ×2 (16:30→17:00)
[2019-10-02] MEDS ORDERED: OXYcodone 5 MG/5 ML ORAL.SOL UDC PO PRN (16:30)
[2019-10-02] MEDS ORDERED: morphine SULFATE 10 MG/ML, 1ML IVPush PRN (17:00)
[2019-10-02] MEDS ORDERED: LIDODERM 5% PATCH TD PRN (17:00)
[2019-10-02] MEDS ORDERED: BISACODYL 10 MG SUPP PR PRN (17:00)
[2019-10-02] MEDS ORDERED: ONDANSETRON 2MG/ML, 2ML IVPush PRN (17:00)
[2019-10-02] MEDS ORDERED: ACETAMINOPHEN 325 MG TABLET PO PRN (17:00)
[2019-10-02] MEDS ORDERED: NITROGLYCERIN 0.4 MG BOTTLE (25 TABS) SL PRN (17:00)
[2019-10-02] MEDS ORDERED: POLYETHYLENE GLYCOL 17 GM PACKET PO PRN (17:00)
[2019-10-02] MEDS ORDERED: LABETALOL 5MG/ML, 20ML IVPush PRN (17:00)
[2019-10-02 17:46] LABS: FREE T4 (FREE THYROXINE) 0.84 ng/dL (0.76-1.46); TROPONIN I < 0.015 ng/mL (0.000-0.045)
[2019-10-02] MEDS ORDERED: ENOXAPARIN 40 MG/0.4 ML SQ SCH (18:00)
[2019-10-02 18:09] VITALS: BP 178/103
[2019-10-02] MEDS ORDERED: OXYcodone IR 5MG TABLET ONE (18:40)
[2019-10-02] MEDS: OXYcodone IR 5MG TABLET PO PRN (18:46)
[2019-10-02] MEDS: hydrALAzine 20 MG/ML, 1ML IVPush PRN (18:46)
[2019-10-02 18:57] VITALS: BP 106/73
[2019-10-02] MEDS ORDERED: LOSARTAN 50MG TABLET PO SCH ×2 (21:00)
[2019-10-02] MEDS: CARVEDILOL 12.5 MG TABLET PO SCH (21:42)
[2019-10-02] MEDS: FAMOTIDINE 20 MG TABLET PO SCH (21:43)
[2019-10-02 23:47] LABS: TROPONIN I < 0.015 ng/mL (0.000-0.045)
[2019-10-03 00:02] VITALS: BP 167/103
[2019-10-03] MEDS: hydrALAzine 20 MG/ML, 1ML IVPush PRN (00:09)
[2019-10-03 00:49] VITALS: BP 96/64
[2019-10-03 05:01] VITALS: BP 106/71
[2019-10-03] MEDS: OXYcodone IR 5MG TABLET PO PRN ×2 (05:01→10:37)
[2019-10-03] MEDS ORDERED: ASPIRIN 325 MG TABLET EC PO SCH (06:00)
[2019-10-03 06:24] LABS: BASOPHILS # (AUTO) 0.04 x10^3/uL (0-0.1); BASOPHILS % (AUTO) 1 % (0-1); EOSINOPHILS # (AUTO) 0.14 x10^3/uL (0-0.4); EOSINOPHILS % (AUTO) 3 % (1-7); LYMPHOCYTES # (AUTO) 1.32 x10^3/uL (1-3.4); LYMPHOCYTES % (AUTO) 27 % (22-44); MD NO; MEAN CORPUSCULAR HEMOGLOBIN 34.1 pg (27.0-34.8); MEAN CORPUSCULAR HGB CONC 33.4 g/dL (32.4-35.8); MEAN CORPUSCULAR VOLUME 101.9 fL (80-100); MEAN PLATELET VOLUME 7.6 fL (7.4-10.4); MONOCYTES % (AUTO) 10 % (2-9); NEUTROPHILS # (AUTO) 2.93 x10^3/uL (1.8-6.8); NEUTROPHILS % (AUTO) 60 % (42-75); PLATELET COUNT 275 x10^3/uL (130-400); RED BLOOD COUNT 3.54 x10^6/uL (3.82-5.3); RED CELL DISTRIBUTION WIDTH 14.2 % (9.6-15.2)
[2019-10-03 06:37] LABS: ANION GAP 6 mmol/L (5-15); CALCIUM 8.9 mg/dL (8.5-10.1); CHLORIDE 100 mmol/L (98-107); CHOLESTEROL, TOTAL 167 mg/dL (140-239); TRIGLYCERIDES 59 mg/dL (50-200); VLDL CHOLESTEROL 12 mg/dL (0-25)
[2019-10-03 06:39] LABS: CHOL/HDL RATIO 1.6; HDL CHOL % 64 % (28-40); HDL CHOLESTEROL (DIRECT) 107 mg/dL (40-60); LDL CHOLESTEROL,CALCULATED 48 mg/dL (54-169); LDL/HDL RATIO 0.4 (0.5-3.0)
[2019-10-03 06:40] VITALS: BP 138/84
[2019-10-03] MEDS: FAMOTIDINE 20 MG TABLET PO SCH (07:47)
[2019-10-03] MEDS: CARVEDILOL 12.5 MG TABLET PO SCH (07:47)
[2019-10-03] MEDS ORDERED: REGADENOSON 0.4 MG/5 ML SYRINGE ONE (07:48)
[2019-10-03] MEDS ORDERED: KETOROLAC 30 MG/1 ML IM ONE (08:00)
[2019-10-03] MEDS ORDERED: LORazepam 2 MG/ML, 1ML IVPush ONE (08:30)
[2019-10-03] MEDS ORDERED: CHLORTHALIDONE 25 MG TABLET PO SCH (09:00)
[2019-10-03] MEDS ORDERED: CHOLECALCIFEROL 1,000 UNIT TABLET PO SCH (09:00)
[2019-10-03] MEDS ORDERED: ASCORBIC ACID 500 MG TABLET PO SCH (09:00)
[2019-10-03] MEDS ORDERED: ZOLP-413 PO (11:54)
[2019-10-03] MEDS ORDERED: NAPR250T6 PO (11:54)
[2019-10-03 12:25] VITALS: BP 132/82
[2019-10-03 12:33] VITALS: BP 136/97
== END 2019-10-03 14:12 | disposition home or self-care (01) ==
LOC: ED 11:46 → SUATTDRO 16:26 → EDIP 16:29 → INTOOBSV 16:29 → 5SO 17:56
PROVIDERS: ADMIT Hospitalist; ATTEND Internal Medicine Infectious Disease
DX: M94.0 Chondrocostal junction syndrome [Tietze] (principal); R07.89 Other chest pain; I10 Essential (primary) hypertension; K86.1 Other chronic pancreatitis; F41.9 Anxiety disorder, unspecified; M54.9 Dorsalgia, unspecified; G89.29 Other chronic pain; I20.0 Unstable angina; G47.00 Insomnia, unspecified; K76.0 Fatty (change of) liver, not elsewhere classified; Z79.899 Other long term (current) drug therapy
CPT/HCPCS: 36415; 71045; 71275; 78452; 80048; 80061; 82040; 83735; 83880; 84100; 84439; 84443; 84484; 85025; 93005; 93017; 96372; 96374; 96375; 96376; 99291; A9502; G0378; J0360; J1650; J1885; J2060; J2785; Q9967